=== PATIENT | male | born 1980 | race Hispanic/Latino ===

== ENCOUNTER 2023-10-15 22:41 | Emergency (ER) | payer SELFPAY ==
[~2023-10-15] VITALS: Ht 162.6 cm; Wt 72.0 kg
[2023-10-15] MEDS ORDERED: ONDANSETRON HCl 4 MG/2 ML SDV IV ONE (23:55)
[2023-10-15] MEDS ORDERED: SODIUM CHLORIDE 0.9% 1,000 ML IV ONE (23:55)
[2023-10-15] MEDS ORDERED: HYDROmorphone HCL 2 MG/AMP IV ONE (23:55)
[2023-10-16] VITALS (9 sets, daily range): BP systolic 123–140; BP diastolic 55–95
[2023-10-16 00:26] LABS: BASO% 0.1 % (0-3); EOS% 0.3 % (0-8); HEMATOCRIT 41.6 % (39.0-50.0); HEMOGLOBIN 14.3 g/dl (14.0-18.0); IMMATURE GRANULOCYTES 0.1 % (0.0-5.0); LYMPH% 16.6 % (15-41); MEAN CORPUSCULAR HGB 29.9 pG CALC (26.0-32.0); MEAN CORPUSCULAR HGB CONC 34.4 g/dL CAL (32.0-36.0); MONO% 4.8 % (2-13); NEUT# 11.46 thou/uL (1.82-7.42); NEUT% 78.1 % (42-76); RED BLOOD COUNT 4.78 mill/uL (4.70-6.10); RED CELL DISTRI WIDTH 12.6 % (11.5-15.5)
[2023-10-16 00:52] LABS: ALBUMIN 4.9 g/dL (3.2-5.0); ALKALINE PHOSPHATASE 76 u/l (38-126); ANION GAP 15 (6-22 (CALC)); BILIRUBIN, TOTAL 0.5 mg/dL (0.2-1.3); BUN 21 mg/dL (9-20); BUN/CREATININE RATIO 17 (12-20 (CALC)); CARBON DIOXIDE 24 mmol/l (22-30); CHLORIDE 111 mmol/l (95-108); CREATININE 1.2 mg/dL (0.7-1.3); GFR FOR AFR.AMER. > 60 ML/MIN (>=60 (CALC)); GFR OTHER RACES > 60 ML/MIN (>=60 (CALC)); LIPASE 69 u/l (23-300); POTASSIUM 3.4 mmol/l (3.5-5.1); SGOT/AST 37 u/l (17-59); SODIUM 146 mmol/l (137-146); TOTAL PROTEIN 8.3 g/dL (6.3-8.2)
[2023-10-16 02:11] LABS: URINE BILIRUBIN - DIPSTICK Negative (NEGATIVE); URINE BLOOD DIPSTICK Small (NEGATIVE); URINE COLOR Yellow; URINE GLUCOSE - DIPSTICK Negative (NEGATIVE); URINE KETONE Trace mg/dL (NEGATIVE); URINE LEUK ESTERASE Negative (NEGATIVE); URINE NITRITE - DIPSTICK Negative (Negative); URINE PROTEIN - DIPSTICK Negative (NEG-TRACE); URINE SPECIFIC GRAVITY 1.025; URINE UROBILINOGEN - DIPSTICK 0.2 E.U./dL (0.2)
[2023-10-16 02:12] LABS: URINE SQUAMOUS EPITHELIAL CELL FEW EPI/hpf (0-FEW); URINE WBC 0-2 WBC/hpf (0-5)
[2023-10-16] MEDS ORDERED: HYDROmorphone HCL 2 MG/AMP IV ONE (02:30)
[2023-10-16] MEDS ORDERED: TAMSULOSIN HCL 0.4 MG CAP PO ONE (05:30)
[2023-10-16] MEDS ORDERED: KEFLEX500 MG PO (05:31)
[2023-10-16] MEDS ORDERED: TAMSULOSIN0.4 MG PO (05:31)
[2023-10-16] MEDS ORDERED: TORADOL PO (05:31)
[2023-10-16] MEDS ORDERED: KETOROLAC TROMETHAMINE 30 MG/ML SDV IV ONE (05:35)
[2023-10-16] MEDS ORDERED: CEPHALEXIN MONOHYDRATE 500 MG/CAP PO ONE (05:35)
== END 2023-10-16 06:00 | disposition home or self-care (01) | DRG 694 ==
LOC: ED 22:41
PROVIDERS: Family Medicine
DX: N13.2 Hydronephrosis with renal and ureteral calculous obstruction (principal)